=== PATIENT | male | born 1995 | race African-American/Black ===

== ENCOUNTER 2020-06-24 12:19 | Emergency (ER) | payer BC ==
[~2020-06-24] VITALS: Ht 180.3 cm; Wt 69.4 kg
--- NOTE | 2020-06-24 12:42 | NUR ---
[id number]
[2020-06-24] MEDS ORDERED: MAALOX/HYOSCYAMINE/LIDOCAINE 45 ML BTL PO ONE (13:00)
[2020-06-24] MEDS ORDERED: PLEASE ENTER HEIGHT AND WEIGHT MC SCH (13:00)
[2020-06-24] MEDS ORDERED: FAMOTIDINE 20 MG/2 ML IV ONE (13:00)
[2020-06-24] MEDS ORDERED: SODIUM CHLORIDE FLUSH 10ML SYR IVF ONE (13:00)
[2020-06-24] MEDS ORDERED: ONDANSETRON 2MG/ML, 2ML IVPush ONE (13:00)
[2020-06-24] MEDS ORDERED: SODIUM CHLORIDE 0.9% 1,000ML IVBOLUS ONE (13:00)
--- NOTE | 2020-06-24 13:15 | NUR ---
AEROSPACE CONTROL AND WARNING SYSTEMS: PT AMBULATORY TO ROOM FROM LOBBY AT THIS TIME WITH STEADY GAIT WITH DENTAL INSTRUMENT MAKER BARAK
[2020-06-24 13:27] LABS: BASOPHILS % (AUTO) 0 % (0-1); EOSINOPHILS % (AUTO) 0 % (1-7); LYMPHOCYTES % (AUTO) 8 % (22-44); MEAN CORPUSCULAR HEMOGLOBIN 34.8 pg (27.5-34.5); MEAN CORPUSCULAR HGB CONC 35.5 g/dL (33.2-36.2); MEAN PLATELET VOLUME 9.4 fL (7.4-10.4); MONOCYTES % (AUTO) 3 % (2-9); NEUTROPHILS % (AUTO) 89 % (42-75); PLATELET COUNT 198 x10^3/uL (130-400); RED BLOOD COUNT 5.13 x10^6/uL (4.38-5.82); RED CELL DISTRIBUTION WIDTH 11.7 % (9.4-14.8)
[2020-06-24 13:29] LABS: MD NO
[2020-06-24 13:37] LABS: ALANINE AMINOTRANSFERASE 41 U/L (12-78); ALBUMIN 4.6 g/dL (3.4-5.0); ANION GAP 10 mmol/L (5-15); CALCIUM 9.4 mg/dL (8.5-10.1); CHLORIDE 101 mmol/L (98-107); CREATININE 1.43 mg/dL (0.7-1.3)
[2020-06-24 13:39] LABS: ALKALINE PHOSPHATASE 64 U/L (45-117); BILIRUBIN,TOTAL 2.7 mg/dL (0.2-1.0)
[2020-06-24] MEDS ORDERED: ONDANSETRON 2MG/ML, 2ML ONE (14:02)
[2020-06-24] MEDS ORDERED: MAALOX/HYOSCYAMINE/LIDOCAINE 45 ML BTL ONE (14:02)
[2020-06-24] MEDS ORDERED: FAMOTIDINE 20 MG/2 ML ONE (14:02)
--- NOTE | 2020-06-24 14:02 | NUR ---
CT WAITING FOR IV ACCESS
--- NOTE | 2020-06-24 14:18 | NUR ---
EDUCATIONAL/DEVELOPMENT ASSISTANT: CT CALLED AND NOTIFIED IV IN PLACE, PT READY FOR EXAM
--- NOTE | 2020-06-24 14:20 | NUR ---
NIMA RN: THIS IS A 24 YEAR OLD MALE WHO C/O OF NAUSEA, VOMITING AND SOME LOOSE STOOL THIS AM. IV AND MEDICATED PER ORDERS, WARM BLANKET GIVEN, DISCUSSED PLAN OF CARE WITH PATIENT AND PRIMARY RN CHAY CORBETT.
[2020-06-24] MEDS ORDERED: OMNIPAQUE 350 MG/ML, 100ML BOTTLE ONE (14:45)
--- NOTE | 2020-06-24 14:46 | NUR ---
Pt to and from imaging.
--- NOTE | 2020-06-24 14:56 | NUR ---
Pt resting in bed.
[2020-06-24 16:16] VITALS: BP 102/62
--- NOTE | 2020-06-24 16:35 | NUR ---
Pt informed to get dressed while awaiting d/c paperwork. "Okay can I get dressed in 5 minutes." Pt told he needed to change now and that this RN would return with d/c paperwork.
== END 2020-06-24 16:41 | disposition home or self-care (01) ==
LOC: ED 15:52
DX: K52.9 Noninfective gastroenteritis and colitis, unspecified (principal); R11.2 Nausea with vomiting, unspecified
CPT/HCPCS: 36415; 74021; 74177; 80053; 83690; 85025; 96361; 96374; 96375; 99285; J2405; J7030; Q9967